=== PATIENT | female | born 1985 | race Caucasian/White ===

== ENCOUNTER 2019-09-09 20:50 | Emergency (ER) | payer MEDICAID ==
[~2019-09-09] VITALS: Ht 162.6 cm; Wt 77.3 kg
[2019-09-09 20:58] VITALS: Ht 162.6 cm; Wt 77.3 kg
[2019-09-09] MEDS ORDERED: KLONOPIN0.5 MG PO (21:00)
[2019-09-09] MEDS ORDERED: PROTONIX40 MG PO (21:00)
[2019-09-09] MEDS ORDERED: ULTRAM50 MG PO (21:00)
[2019-09-09 21:27] LABS: BASOPHILS 0.2 % (0-2); EOSINOPHILS 0.4 % (0-7); HEMATOCRIT 45.4 % (36.0-48.0); HEMOGLOBIN 15.6 g/dL (12-16); IMMATURE GRANULOCYTES 0.3 % (0-5); LYMPHOCYTES 32.1 % (15-50); MCH 31.1 pg (26.0-34.0); MCHC 34.4 g/dL (31.0-37.0); MCV 90.6 fL (80.0-100.0); MEAN PLATELET VOLUME 11.2 fL (7.4-10.4); MONOCYTES 5.2 % (2-11); NEUTROPHILS 61.8 % (40-80); PLATELET COUNT 234 10x3/uL (130-400); RBC 5.01 10x6/uL (4.00-5.40); RDW 12.9 % (11.5-14.5); WBC 11.5 10x3/uL (4.8-10.8)
[2019-09-09 21:32] LABS: BILIRUBIN NEGATIVE (NEGATIVE); GLUCOSE NEGATIVE (NEGATIVE); KETONE NEGATIVE (NEGATIVE); NITRITE NEGATIVE (NEGATIVE); UROBILINOGEN NORMAL (NORMAL)
[2019-09-09 21:34] LABS: RED CELLS - URINE OCC /hpf (0-5); WHITE CELLS - URINE 0-5 /hpf (NEGATIVE)
[2019-09-09 21:35] LABS: BACTERIA MODERATE /hpf (NEGATIVE)
[2019-09-09 21:40] LABS: ANION GAP 13.7 mmol/L (8-16); CALCIUM 9.4 mg/dL (8.5-10.1); CARBON DIOXIDE 24.3 mmol/L (21.0-32.0)
[2019-09-09 21:50] LABS: ALBUMIN 4.2 g/dL (3.4-5.0); BILIRUBIN - TOTAL 0.64 mg/dL (0.2-1.3); PROTEIN - SERUM 7.7 g/dL (6.4-8.2)
[2019-09-09 23:20] VITALS: BP 152/89
== END 2019-09-09 23:20 | disposition home or self-care (01) ==
LOC: D.ER 20:50
PROVIDERS: Family Medicine
DX: R10.31 Right lower quadrant pain (principal); E87.6 Hypokalemia; D72.829 Elevated white blood cell count, unspecified

== ENCOUNTER 2019-10-19 17:02 | Observation (INO) | payer MEDICAID ==
[~2019-10-19] VITALS: Ht 162.6 cm; Wt 66.8 kg
[~2019-10-19 17:02] MED LIST: KLONOPIN0.5 MG PO; PROTONIX40 MG PO; ULTRAM50 MG PO
[2019-10-19] MEDS ORDERED: CHANTIX 1 MG TAB1 MG (17:38)
[2019-10-19] MEDS ORDERED: LISINOPRIL2.5 MG PO (17:38)
--- NOTE | 2019-10-19 17:44 | NUR ---
URINE SPEC COLLECTED, LABELED AT BS AND SENT TO LAB
[2019-10-19 18:05] LABS: HEMOGLOBIN 14.5 g/dL (12-16); LYMPHOCYTES 30.4 % (15-50); MCH 30.9 pg (26.0-34.0); MCHC 34.5 g/dL (31.0-37.0); MCV 89.6 fL (80.0-100.0); MEAN PLATELET VOLUME 11.1 fL (7.4-10.4); PLATELET COUNT 207 10x3/uL (130-400); RBC 4.69 10x6/uL (4.00-5.40); RDW 12.8 % (11.5-14.5); WBC 10.2 10x3/uL (4.8-10.8)
[2019-10-19 18:17] LABS: CALC OSMOLALITY 269 mosm/kg (275-300); CALCIUM 8.9 mg/dL (8.5-10.1); CARBON DIOXIDE 24.1 mmol/L (21.0-32.0); CHLORIDE - SERUM 102 mmol/L (98-107); CREATININE - SERUM 0.8 mg/dL (0.6-1.3); GLUCOSE 92 mg/dL (74-106); POTASSIUM - SERUM 3.8 mmol/L (3.5-5.1); SODIUM 136 mmol/L (136-145); UREA NITROGEN 7 mg/dL (7-18); eGFR NON AFRICAN AMERICAN 87 mL/min (90-120)
[2019-10-19 18:25] LABS: ALBUMIN 4.3 g/dL (3.4-5.0); ALKALINE PHOSPHATASE 71 U/L (30-120); ALT (SGPT) 27 U/L (10-68); AMYLASE - SERUM 36 U/L (25-115); BILIRUBIN - TOTAL 0.74 mg/dL (0.2-1.3); LIPASE 72 U/L (73-393); NITRITE NEGATIVE (NEGATIVE); PROTEIN - SERUM 7.5 g/dL (6.4-8.2); TROPONIN-I < 0.017 ng/mL (0.000-0.060)
[2019-10-19 18:26] LABS: AMORPHOUS SEDIMENT >1+ /lpf (NONE SEEN); BACTERIA MODERATE /hpf (NONE SEEN); BILIRUBIN NEGATIVE (NEGATIVE); EPITHELIAL CELLS 0-5 /hpf (0-5); KETONE MODERATE mg/dL (NEGATIVE); RED CELLS - URINE 0-5 /hpf (0-5); UROBILINOGEN NORMAL (NORMAL); WHITE CELLS - URINE 0-5 /hpf (0-5)
[2019-10-19 18:29] LABS: HCG SERUM NEGATIVE (NEGATIVE)
--- NOTE | 2019-10-19 19:23 | NUR ---
BS REPORT TO RODRIGO MENDOSA
[2019-10-19 19:29] VITALS: BP 128/75
--- NOTE | 2019-10-19 20:34 | NUR ---
ATTEMPTED TO CALL REPORT, THEY WILL CALL ME BACK
--- NOTE | 2019-10-19 21:15 | NUR ---
ATTEMPTED TO CALL REPORT, NURSE WILL CALL ME BACK
[2019-10-19] MEDS ORDERED: IMITREX50 MG PO (21:39)
[2019-10-19 22:58] VITALS: BP 130/72; BMI 25.3
[2019-10-20] VITALS: BP 130/72
[2019-10-20 04:00] VITALS: BP 104/57
--- NOTE | 2019-10-20 05:27 | NUR ---
I have reviewed this patient and I concur with the Shift Assessment completed by the Licensed Practical Nurse today this shift.
[2019-10-20 06:43] LABS: BASOPHILS 0.1 % (0-2); EOSINOPHILS 0.6 % (0-7); HEMATOCRIT 38.8 % (36.0-48.0); HEMOGLOBIN 13.3 g/dL (12-16); IMMATURE GRANULOCYTES 0.2 % (0-5); LYMPHOCYTES 27.6 % (15-50); MCH 31.1 pg (26.0-34.0); MCHC 34.3 g/dL (31.0-37.0); MCV 90.7 fL (80.0-100.0); MONOCYTES 7.9 % (2-11); NEUTROPHILS 63.6 % (40-80); PLATELET COUNT 171 10x3/uL (130-400); RBC 4.28 10x6/uL (4.00-5.40); RDW 12.9 % (11.5-14.5); WBC 8.5 10x3/uL (4.8-10.8)
[2019-10-20 06:52] LABS: APTT 29.2 SECONDS (22.8-39.4); INR 1.16 (0.85-1.17); PROTIME 14.7 SECONDS (11.6-15.0)
[2019-10-20 06:59] LABS: ALKALINE PHOSPHATASE 57 U/L (30-120); ALT (SGPT) 21 U/L (10-68); AMYLASE - SERUM 32 U/L (25-115); BILIRUBIN - TOTAL 0.63 mg/dL (0.2-1.3); CALC OSMOLALITY 278 mosm/kg (275-300); CALCIUM 8.2 mg/dL (8.5-10.1); CARBON DIOXIDE 24.3 mmol/L (21.0-32.0); CHLORIDE - SERUM 106 mmol/L (98-107); CREATININE - SERUM 0.7 mg/dL (0.6-1.3); GLUCOSE 98 mg/dL (74-106); LIPASE 67 U/L (73-393); PHOSPHOROUS 3.3 mg/dL (2.5-4.9); POTASSIUM - SERUM 3.8 mmol/L (3.5-5.1); PROTEIN - SERUM 6.1 g/dL (6.4-8.2); SODIUM 141 mmol/L (136-145); UREA NITROGEN 6 mg/dL (7-18); eGFR NON AFRICAN AMERICAN > 90 mL/min (90-120)
[2019-10-20 07:07] LABS: ALBUMIN 3.2 g/dL (3.4-5.0)
--- NOTE | 2019-10-20 07:43 | NUR ---
ALERT AND ORIENTED. LUNGS CLEAR BILATERALLY. HEART SOUNDS S1 AND S2 HEARD IN ALL HARPER. BOWEL SOUNDS ACTIVE X 4. IV TO RIGHT HAND PATENT WITHOUT REDNESS. DENIES NEEDS. BED LOW. CALL JENNINGS AND PERSONAL ITEMS IN REACH. WILL CONTINUE TO MONITOR.
[2019-10-20 09:00] VITALS: BP 101/64
[2019-10-20 13:13] VITALS: BP 116/68
--- NOTE | 2019-10-20 13:43 | NUR ---
RESTING IN BED. DENIES NEEDS. WILL CONTINUE TO MONITOR.
[2019-10-20] MEDS ORDERED: NICODERM CQ1 EAC3 TRANSDERM (13:53)
[2019-10-20] MEDS ORDERED: LEVAQUIN750 MG PO (13:54)
[2019-10-20] MEDS ORDERED: PHENERGAN50 MG RC (13:54)
[2019-10-20] MEDS ORDERED: FLAGYL500 MG PO (13:54)
--- NOTE | 2019-10-20 14:30 | NUR ---
IV REMOVED FOR DISCHARGE.
--- NOTE | 2019-10-20 16:36 | NUR ---
DISCHARGE EDUCATION PROVIDED BOTH WRITTEN AND VERBAL. VERBALIZED UNDERSTANDING. DENIES FURTHER QUESTIONS. PATIENT DC HOME WITH ALL BELONGINGS.
[2019-10-20 17:16] VITALS: Ht 162.6 cm; Wt 66.8 kg
== END 2019-10-20 16:57 | disposition home or self-care (01) ==
LOC: D.ER 17:02 → D.MS 19:29 → OBSVTIME 19:29 → D.MS 19:29
PROVIDERS: Family Medicine; ADMIT Emergency Medicine; ATTEND Emergency Medicine
DX: N39.0 Urinary tract infection, site not specified (principal); I10 Essential (primary) hypertension; E78.5 Hyperlipidemia, unspecified; F41.8 Other specified anxiety disorders; F17.203 Nicotine dependence unspecified, with withdrawal; R10.11 Right upper quadrant pain; K21.9 Gastro-esophageal reflux disease without esophagitis

== ENCOUNTER → 2019-11-18 08:38 | Outpatient (CLI) | payer MEDICAID ==
[2019-10-20 17:16] VITALS: BMI 25.3
[~2019-11-18 08:38] MED LIST changes: +CHANTIX 1 MG TAB1 MG; +FLAGYL500 MG PO; +IMITREX50 MG PO; +LEVAQUIN750 MG PO; +LISINOPRIL2.5 MG PO; +NICODERM CQ1 EAC3 TRANSDERM; +PHENERGAN50 MG RC
[2019-11-18 11:10] LABS: BASOPHILS 0.3 % (0-2); HEMATOCRIT 47.7 % (36.0-48.0); HEMOGLOBIN 16.3 g/dL (12-16); IMMATURE GRANULOCYTES 0.3 % (0-5); LYMPHOCYTES 36.9 % (15-50); MCH 31.5 pg (26.0-34.0); MCHC 34.2 g/dL (31.0-37.0); MCV 92.1 fL (80.0-100.0); MEAN PLATELET VOLUME 11.9 fL (7.4-10.4); MONOCYTES 5.9 % (2-11); NEUTROPHILS 55.6 % (40-80); PLATELET COUNT 199 10x3/uL (130-400); RBC 5.18 10x6/uL (4.00-5.40); RDW 12.4 % (11.5-14.5); WBC 7.3 10x3/uL (4.8-10.8)
[2019-11-18 11:26] LABS: ALBUMIN 4.3 g/dL (3.4-5.0); BILIRUBIN - DIRECT 0.17 mg/dL (0.00-0.30); BILIRUBIN - INDIRECT 0.69 mg/dL (0.00-1.00); BILIRUBIN - TOTAL 0.86 mg/dL (0.2-1.3); C-REACTIVE PROTEIN 0.8 mg/dL (0.0-0.9); PROTEIN - SERUM 7.9 g/dL (6.4-8.2)
[2019-11-18 12:08] LABS: ERYTHROCYTE SEDIMENTATION RATE 21 mm/hr (0-20)
== END | disposition home or self-care (01) ==
LOC: D.RAD 08:38
PROVIDERS: ATTEND Internal Medicine Gastroenterology
DX: K52.9 Noninfective gastroenteritis and colitis, unspecified (principal); R93.3 Abnormal findings on diagnostic imaging of other parts of digestive tract

== ENCOUNTER → 2019-11-23 11:10 | Outpatient (CLI) | payer MEDICAID ==
[2019-10-20 17:16] VITALS: BMI 25.3
== END | disposition home or self-care (01) ==
LOC: D.NM 11:10
PROVIDERS: ATTEND Internal Medicine Gastroenterology
DX: R11.2 Nausea with vomiting, unspecified (principal)

== ENCOUNTER 2020-04-17 18:43 | Emergency (ER) | payer MEDICAID ==
[~2020-04-17] VITALS: Ht 162.6 cm; Wt 68.6 kg
[2020-04-17 19:00] VITALS: Ht 162.6 cm; Wt 68.6 kg
[2020-04-17 19:15] LABS: BILIRUBIN NEGATIVE (NEGATIVE); KETONE NEGATIVE (NEGATIVE); NITRITE NEGATIVE (NEGATIVE); UROBILINOGEN NORMAL mg/dL (< 2)
[2020-04-17 19:17] LABS: BASOPHILS 0.2 % (0-2); EOSINOPHILS 0.6 % (0-7); HEMATOCRIT 44.4 % (36.0-48.0); IMMATURE GRANULOCYTES 0.3 % (0-5); LYMPHOCYTE ABS# 3.34 10x3/uL (1.18-3.74); MCH 30.2 pg (26.0-34.0); MCHC 33.8 g/dL (31.0-37.0); MCV 89.5 fL (80.0-100.0); MEAN PLATELET VOLUME 10.5 fL (7.4-10.4); MONOCYTES 6.3 % (2-11); NEUTROPHIL ABS# 5.75 10x3/uL (1.56-6.13); NEUTROPHILS 58.6 % (40-80); RBC 4.96 10x6/uL (4.00-5.40); RDW 11.8 % (11.5-14.5); WBC 9.8 10x3/uL (4.8-10.8)
[2020-04-17 19:19] LABS: PLATELET COUNT 239 10x3/uL (130-400)
[2020-04-17 19:20] LABS: UDS - AMPHET NEGATIVE QUAL (NEGATIVE); UDS - BARB NEGATIVE QUAL (NEGATIVE); UDS - BENZO NEGATIVE QUAL (NEGATIVE); UDS - COCAINE NEGATIVE QUAL (NEGATIVE); UDS - OPIATE NEGATIVE QUAL (NEGATIVE); UDS - PCP NEGATIVE QUAL (NEGATIVE); UDS - THC POSITIVE QUAL (NEGATIVE)
[2020-04-17 19:24] LABS: CALC OSMOLALITY 271 mosm/kg (275-300); CARBON DIOXIDE 27.4 mmol/L (21.0-32.0); CHLORIDE - SERUM 102 mmol/L (98-107); CREATININE - SERUM 0.7 mg/dL (0.6-1.3); GLUCOSE 85 mg/dL (74-106); POTASSIUM - SERUM 3.5 mmol/L (3.5-5.1); SODIUM 138 mmol/L (136-145); UREA NITROGEN 5 mg/dL (7-18); eGFR NON AFRICAN AMERICAN > 90 mL/min (90-120)
[2020-04-17 19:30] LABS: ALBUMIN 4.2 g/dL (3.4-5.0); ALKALINE PHOSPHATASE 80 U/L (30-120); ALT (SGPT) 31 U/L (10-68); BILIRUBIN - TOTAL 0.44 mg/dL (0.2-1.3); LIPASE 97 U/L (73-393); PROTEIN - SERUM 7.7 g/dL (6.4-8.2)
[2020-04-17] MEDS ORDERED: COLACE100 MG PO (20:24)
[2020-04-17 20:29] VITALS: BP 118/72
== END 2020-04-17 20:27 | disposition home or self-care (01) ==
LOC: D.ER 18:43
PROVIDERS: Family Medicine
DX: R10.9 Unspecified abdominal pain (principal); I10 Essential (primary) hypertension; E78.5 Hyperlipidemia, unspecified; Z72.0 Tobacco use; K21.9 Gastro-esophageal reflux disease without esophagitis